=== PATIENT | male | born 1990 | race Caucasian/White ===

== ENCOUNTER 2025-04-11 13:48 | Emergency (ER) | payer SELFPAY ==
[2025-04-11 13:55] VITALS: BP 137/87; PULSE 74; RESP 15; TEMP 36.7; O2SAT 98
[2025-04-11 14:03] VITALS: BP 137/87; PULSE 74; RESP 15; TEMP 36.7; O2SAT 98
--- NOTE | 2025-04-11 15:02 | ED.GENADUL_ITS ---
Discharge Plan Disposition Patient Disposition: Home Condition: Stable Discharge Details Clinical Impression: Dental infection Primary Care Provider: None,None ED Provider: Liana Barrientos Home Meds and New Rx's Prescriptions: New amoxicillin-pot clavulanate 875-125 mg tablet 1 tab PO BID 10 Days Qty: 20 0RF No Action meclizine [Antivert] 25 MG tablet 25 mg PO Q6H PRN PRNQty: 10 0RF dexamethasone 4 MG tablet 8 mg PO DAILY Qty: 4 0RF Rx Instructions: 2 tablets once a day for 2 days starting on . Discharge Instructions Instructions: Dental Pain (DC) Additional Instructions: You were seen in the emergency department today for evaluation of dental pain and have evidence of infected dental caries. In our department you had a full physical examination performed, and I have sent a prescription for an antibiotic to your pharmacy. Please take all this antibiotic until it is gone, even if you start to feel better. Please use therapeutic dosing of Tylenol (acetaminophen) & Advil (ibuprofen) in an alternating fashion as follows: Take 1000mg of Tylenol every 6 hours without missing doses- that is 4 times per day. Correction in between the Tylenol doses, take 600mg of Advil also on a 6 hour schedule, that is also 4 times per day. With this strategy, you will be taking something for fever/pain as often as every 3 hours. The daily maximum dosing of Tylenol is 4000mg, and the daily maximum dosing of Advil is 2400mg. Please note that some common cold medications & prescription pain medications may contain acetaminophen and you need to read OTC drug labels and factor that in to maximum daily doses. Please maintain good hydration and nutrition. You will need to return to the emergency department if you develop a fever or chills, cannot swallow or open your mouth, or have any other concerning findings. Please contact a dentist to schedule an appointment to definitively manage your cavities. I have placed a referral for you to establish with a primary care provider, you should contact their office to schedule a visit. Thank you for allowing us to be part of your care. Discharge Data Discharge Date/Time-TO BE ENTERED AT DEPARTURE: 04/11/25 15:13 HPI General Mode of arrival: ambulatory . Date/Time Provider Initiated Documentation: 04/11/25 14:03 . Limitations to Documentation: no limitations . Information obtained by: patient and old records reviewed . HPI Narrative: This is a 34-year-old male patient presenting for evaluation of dental pain. The patient has numerous dental caries, and started to have pain in a right upper incisor on Thursday. He got very bad yesterday, he has been managing his pain with Orajel. States that he tried to call 3 dentists today requesting an evaluation for concern for infection, and was unable to get an appointment. [facility] told him to come here which he has done. The patient reports no fever or chills, has been able to eat and drink normally, no difficulty opening his mouth, moving his neck, etc. He is otherwise in his normal state of health, no allergies to antibiotics. Related Data Home Medications Medication Instructions Recorded Confirmed dexamethasone 4 mg tablet 8 mg (2 x 4 mg) PO DAILY Kerri tigo 09/29/17 04/11/25 #4 tabs meclizine 25 mg tablet (Antivert) 25 mg PO Q6H PRN PRN #10 tabs 09/29/17 04/11/25 amoxicillin 875 mg-potassium 1 tab PO BID 10 days #20 tabs 04/11/25 clavulanate 125 mg tablet Previous Rx's Medication Instructions Recorded dexamethasone 4 mg tablet 8 mg (2 x 4 mg) PO DAILY Kerri tigo 09/29/17 #4 tabs meclizine 25 mg tablet (Antivert) 25 mg PO Q6H PRN PRN #10 tabs 09/29/17 amoxicillin 875 mg-potassium 1 tab PO BID 10 days #20 tabs 04/11/25 clavulanate 125 mg tablet Allergies Allergy/AdvReac Type Severity Reaction Status Date / Time No Known Allergies Allergy Unverified 04/11/25 14:02 General Stated Complaint: DentalOral REJI: 4 Exam Narrative Exam Narrative: Gen: Awake and alert, in no apparent distress HEENT: Non-icteric sclera, PERRL, EOMs are full without entrapment or pain with motion. Bilateral TMs clear, generally poor dentition is appreciated with numerous dental caries. There is evidence of erosion of the right incisor and tenderness with any palpation in that area. There are no periapical abscesses visualized, floor of the mouth is soft, posterior pharynx is without erythema, exudate, or lesion. No trismus is appreciated. Mild right cheek swelling and tenderness without overlying skin change Neck: Supple,, full range of motion without meningismus Lungs: No apparent respiratory distress, normal respiratory effort. CV: Appears well perfused Abdomen: Non-distended MSK: Moves 4 extremities without apparent limitation in ROM Skin: Visualized skin without rashes, cyanosis. Neuro: Normal Gait, no obvious focal deficits or facial asymmetry. Speaks in full, clear sentences. Psych: Appropriate for situation. Course Vital Signs Vital signs: Vital Signs Temperature 36.7 C 04/11/25 13:55 Pulse 74 04/11/25 13:55 Respiratory Rate 15 04/11/25 13:55 Blood Pressure 137/87 04/11/25 13:55 Pulse Oximetry 98 04/11/25 13:55 Temperature 36.7 C 04/11/25 14:03 Temperature Source Oral 04/11/25 14:03 Pulse 74 04/11/25 14:03 Respiratory Rate 15 04/11/25 14:03 Blood Pressure 137/87 04/11/25 14:03 Blood Pressure Position Sitting 04/11/25 14:03 Pulse Oximetry 98 04/11/25 14:03 Oxygen Delivery Method Room Air 04/11/25 13:55 Oxygen Flow Rate 0 04/11/25 13:55 Pain Level 4 04/11/25 13:55 Medical Decision Making This is a 34-year-old male patient presenting for evaluation of dental pain. Differential includes but is not limited to infected tooth, dental carry disease, dental erosion, no evidence of periapical abscess, deep space infection such as Jesus Manuel's angina, [employer], RPA. The patient is without tachycardia or fever to suggest systemic symptoms like sepsis or bacteremia. I counseled the patient on conservative management with Tylenol and ibuprofen, dental list was provided to him and I sent a prescription for Augmentin to his pharmacy to treat his dental infection. A referral was made for the patient to establish with a primary care provider, which he does not have. At this time, the patient has had a full medical evaluation and is safe for discharge to home. They are hemodynamically stable, ambulatory, and tolerating PO. They are understanding of the follow-up plan and return precautions. They left our facility without incident. Liana Barrientos MD [facility] All Active Problems (Updated 04/11/25 @ 15:03 by Liana Barrientos MD) Dental infection (Acute) Social History Smoking/Tobacco Use Status: Current every day Tobacco Type: cigarettes Smoking risk assessment performed?: Yes Alcohol Intake: current Alcohol Intake frequency: a few times a week Alcohol type: hard liquor Drug use: Never Substance use type: marijuana Do you feel safe in your relationship?: Yes PAWSS Have you Been Recently Intoxicated or Drunk Within the Last 30 days?: No Have you Ever Experienced Previous Episodes of Alcohol Withdrawal?: No Have you ever Experienced Withdrawal Seizures?: No Have you ever Experienced Delirium Tremens(DT)s?: No Have you ever undergone Alcohol Rehabilitation Treatment (i.e, inpt ot outpatient treatment programs)?: No Have you ever Experienced Blackouts?: No Have you ever Combined Alcohol with other Downers within the last 90 days?: No Have you ever Combined Alcohol with any other Substance of Abuse during the last 90 days?: No Positive Blood Alcohol level on Presentation? [PCS.BAL]: No Evidence of Increased Autonomic Activity (i.e. HR>120, tremor, sweating, agitation, nausea)?: No Result: 0
== END 2025-04-11 15:13 | disposition home or self-care (01) ==
PROVIDERS: Emergency Provider Emergency Medicine
DX: K04.7 Periapical abscess without sinus (principal)
CPT/HCPCS: 99283 ×2